=== PATIENT | female | born 1960 | race African-American/Black ===

== ENCOUNTER 2024-11-09 07:20 | Inpatient (IN) | payer OTHER ==
[~2024-11-09] VITALS: Ht 160 cm; Wt 71.7 kg
[2024-11-09] MEDS: MAGNESIUM 2 G PREMIX 50 ML IV ONE (08:11)
[2024-11-09] MEDS: METHYLPREDNISOLONE SOD SUCC 125MG/2ML (ACT-O-VIAL) IV STA (08:11)
[2024-11-09 08:12] LABS: BASOPHILS % 0.7 % (0.0-2.0); CHLORIDE 106 mEq/L (98-107); DIFFERENTIAL COMMENT 0; EOSINOPHILS % 1.9 % (0.0-5.0); HEMATOCRIT. 37.6 % (36.0-48.0); LYMPHOCYTES % 16.5 % (20.0-50.0); MEAN CORPUSCULAR HEMOGLOBIN 33.2 pg (28.0-32.0); MEAN CORPUSCULAR VOLUME 103.9 fL (81.0-99.0); MEAN PLATELET VOLUME 8.6 fl (7.4-10.4); MONOCYTES % 4.2 % (2.0-8.0); NEUTROPHILS % 76.7 % (40.0-76.0); PLATELET 459 x1000/uL (130-400); POTASSIUM 3.1 mEq/L (3.5-5.1); RED BLOOD CELL COUNT 3.62 mill/uL (4.2-5.4); RED CELL DISTRIBUTION WIDTH 14.8 % (11.6-14.6); SODIUM 140 mEq/L (136-145); WHITE BLOOD COUNT 17.8 x1000/uL (4.5-11.0)
[2024-11-09 08:13] LABS: CARBON DIOXIDE 25 mEq/L (21-32)
[2024-11-09 08:17] VITALS: PULSE 118; RESP 26; O2SAT 99
[2024-11-09] MEDS: ALBUTEROL (0.083%) 2.5MG/3ML NEB HHN STA (08:17)
[2024-11-09] MEDS: IPRATROPIUM BROMIDE (0.02%) 0.5MG/2.5ML NEB HHN STA (08:17)
[2024-11-09 08:18] LABS: CREATININE 0.9 mg/dL (0.6-1.0); GLUCOSE 210 mg/dL (70-105); UREA NITROGEN BLOOD 13 mg/dL (9-23)
[2024-11-09 08:20] LABS: TROPONIN I HIGH SENSITIVITY 15 ng/L (3.0-34)
[2024-11-09] MEDS: SODIUM CHLORIDE 0.9% (SEPSIS BOLUS) IV ONE (09:40)
[2024-11-09] MEDS: PIPERACILLIN/TAZO 3.375G/50ML 50 ML IV ONE (10:12)
[2024-11-09 10:50] LABS: BG BASE EXCESS -6.7 mmol/L (-2.0-3.0); BG CARBOXYHEMOGLOBIN 0.8 % (0.5-1.5); BG DEOXYHEMOGLOBIN 3.3 % (0.0-5.0); BG FRACTION INSPIRED OXYGEN 40; BG HCO3 ACT 18.3 mmol/L (21.0-28.0); BG METHEMOGLOBIN 0.2 % (0.5-1.5); BG OXYGEN SATURATION 96.7 % (94.0-98.0); BG OXYHEMOGLOBIN 95.7 % (94.0-98.0); BG PCO2 34.8 mmHg (32.0-45.0); BG PH 7.339 (7.350-7.450); BG PO2 93.2 mmHg (83.0-108.0); BG SAMPLE SITE LEFT RADIAL; BG TOTAL HEMOGLOBIN 12.1 g/dL (12.0-16.0); BG VENT MODE NASAL CANNULA
[2024-11-09] MEDS: VANCOMYCIN 1G PREMIX 200 ML IV ONE (10:54)
[2024-11-09] MEDS ORDERED: DEXTROSE 50% WATER 50ML SYRINGE IV PRN (11:45)
[2024-11-09] MEDS ORDERED: LORAZEPAM 0.5MG TABLET PO PRN (11:45)
[2024-11-09] MEDS ORDERED: ACETAMINOPHEN 325MG TABLET PO PRN ×2 (11:45)
[2024-11-09] MEDS ORDERED: ZOLPIDEM TARTRATE 5MG TABLET PO PRN (11:45)
[2024-11-09] MEDS ORDERED: MAGNESIUM/ALUMINUM HYDROXIDE/SIMETHICONE 30ML UDC PO PRN (11:45)
[2024-11-09] MEDS ORDERED: HYDRALAZINE 20MG/ML VIAL IV PRN (11:45)
[2024-11-09] MEDS ORDERED: PROMETHAZINE/DEXTROMETHORPHAN 6.25-15MG/5ML PO PRN (11:45)
[2024-11-09] MEDS ORDERED: ONDANSETRON HCL 4MG/2ML INJ IV PRN (11:45)
[2024-11-09] MEDS ORDERED: HYDROCODONE/ACETAMINOPHEN 5/325MG TABLET PO PRN (11:45)
[2024-11-09] MEDS: KETOROLAC 30MG/ML VIAL IV PRN (12:35)
[2024-11-09 12:37] VITALS: PULSE 123; RESP 24; O2SAT 98
[2024-11-09] MEDS: IPRATROPIUM/ALBUTEROL 0.5-3(2.5)MG/3ML NEB HHN PRN (12:37)
[2024-11-09] MEDS: IPRATROPIUM/ALBUTEROL 0.5-3(2.5)MG/3ML NEB HHN SCH (13:00)
[2024-11-09] MEDS: POTASSIUM CHLORIDE 20MEQ TABLET SR PO SCH (13:11)
[2024-11-09] MEDS: LEVOFLOXACIN 500MG PREMIX 100 ML IV SCH (13:11)
[2024-11-09] MEDS: BLOOD SUGAR DIAGNOSTIC STRIP TEST SCH (13:11)
[2024-11-09] MEDS: INSULIN LISPRO 100 UNITS/ML SUBCUT SCH (13:27)
[2024-11-09] MEDS: ENOXAPARIN 40MG/0.4ML SYR SUBCUT SCH (13:30)
[2024-11-09 13:58] LABS: ALANINE AMINOTRANSFERASE 49 IU/L (10-49); ASPARTATE AMINOTRANSFERASE 54 IU/L (<34); BILIRUBIN DIRECT 0.1 mg/dL (<=3.0)
[2024-11-09 13:59] LABS: BILIRUBIN TOTAL 0.5 mg/dL (0.1-1.0); PROTEIN TOTAL 6.8 g/dL (6.0-8.3)
[2024-11-09 14:06] LABS: TROPONIN I HIGH SENSITIVITY 459 ng/L (3.0-34)
[2024-11-09] MEDS: SODIUM CHLORIDE 0.9% 3ML FLUSH IVF SCH (14:07)
[2024-11-09] MEDS: METHYLPREDNISOLONE SOD SUCC 40MG/ML (ACT-O-VIAL) IV SCH (14:44)
[2024-11-09] MEDS: CLONIDINE 0.1MG TABLET PO PRN (16:05)
[2024-11-09] MEDS: GUAIFENESIN 600MG ER TABLET PO SCH (22:34)
[2024-11-09] MEDS: PANTOPRAZOLE 40MG DR TABLET PO SCH (22:35)
[2024-11-10] VITALS (8 sets, daily range): BP systolic 142–152; BP diastolic 69–72; PULSE 80–108; RESP 16–20; TEMP 36.16956–37.503; O2SAT 98–99
[2024-11-10] MEDS: NICOTINE 21MG PATCH TD SCH (14:13)
[2024-11-10] MEDS: LEVOFLOXACIN 250MG PREMIX 50 ML IV SCH ×2 (14:14→15:23)
[2024-11-10] MEDS ORDERED: AMLO10TA80 MT (15:47)
[2024-11-10] MEDS ORDERED: MV-M1TAB19 PO (15:47)
[2024-11-10] MEDS ORDERED: LOSA100T33 MT (15:47)
[2024-11-10] MEDS ORDERED: ASPI-1406 MT (15:47)
[2024-11-10] MEDS: DIPHENHYDRAMINE 50MG/ML VIAL IV PRN (23:15)
[2024-11-11] VITALS (10 sets, daily range): BP systolic 152–180; BP diastolic 62–88; PULSE 89–105; RESP 15–20; TEMP 36.28068–36.78072; O2SAT 95–100
[2024-11-12] VITALS (10 sets, daily range): BP systolic 146–199; BP diastolic 62–80; PULSE 72–103; RESP 18–22; TEMP 35.78064–36.61404; O2SAT 97–100
[2024-11-13] VITALS: BP 148/55; PULSE 84; RESP 20; TEMP 36.3918; O2SAT 98
[2024-11-13 04:00] VITALS: BP 183/78; PULSE 100; PULSE 89; RESP 16; RESP 18; TEMP 36.61404; O2SAT 98; O2SAT 99
[2024-11-13 08:00] VITALS: BP 181/76; PULSE 100; RESP 18; TEMP 36.44736; O2SAT 99
[2024-11-13 09:11] VITALS: PULSE 91; RESP 20
[2024-11-13] MEDS ORDERED: LEVOFLOXACIN 500MG TABLET PO SCH (12:00)
[2024-11-14] MEDS ORDERED: FAMOTIDINE 20MG TABLET PO SCH (09:00)
[2024-11-18] MEDS ORDERED: NICO-645 TP (00:04)
== END 2024-11-13 13:26 | disposition home or self-care (01) | DRG 140 ==
LOC: ER 07:20 → EDBEDREQ 11:19 → EDBEDREQTM 11:19 → 7EST 11-10 13:05
PROVIDERS: ADMIT Internal Medicine; ATTEND Internal Medicine
DX: J44.1 Chronic obstructive pulmonary disease with (acute) exacerbation (principal); J96.01 Acute respiratory failure with hypoxia; R65.10 Systemic inflammatory response syndrome (SIRS) of non-infectious origin without acute organ dysfunction; Z20.822 Contact with and (suspected) exposure to COVID-19; I10 Essential (primary) hypertension; E87.6 Hypokalemia; F17.200 Nicotine dependence, unspecified, uncomplicated; Z79.899 Other long term (current) drug therapy
CPT/HCPCS: 36415; 36600; 71045; 80048; 80076; 82375; 82805; 82962; 83036; 83880; 84484; 85025; 87426; 87804; 93005; 93306; 94070; 94640; 94760; 99291; A4606; A4663; J1200; J1650; J1815; J1885; J1956; J2543; J2919; J2920; J3370; J3475; J7030